=== PATIENT | male | born 1975 | race Caucasian/White ===

== ENCOUNTER 2018-06-10 09:32 | Emergency (ER) | payer OTHER ==
[~2018-06-10] VITALS: Ht 182.9 cm; Wt 74.8 kg
[2018-06-10] MEDS ORDERED: XARELTO15 MG PO (09:54)
== END 2018-06-10 11:44 | disposition home or self-care (01) ==
LOC: ER 09:32
DX: I82.511 Chronic embolism and thrombosis of right femoral vein (principal); I82.531 Chronic embolism and thrombosis of right popliteal vein; Z87.891 Personal history of nicotine dependence; Z79.899 Other long term (current) drug therapy
CPT/HCPCS: 93971; 99283-25